=== PATIENT | female | born 1950 | race Caucasian/White ===

== ENCOUNTER → 2020-11-03 | Outpatient (CLI) | payer MEDICARE, OTHER ==
[~2020-11-03] MED LIST: ACYC800 PO; ASPI81CH PO; CELEBREX PO; CETI10 PO; DIPATR PO; ESOM20 PO; HYDACE10B PO; HYDACE5 PO; NITR100CA PO; OMEP20ER PO; OXYACE5T PO; PHENA200 PO; PROM25 PO; RXHYDMOR2 PO; RXPHEN200 PO; RXTRAM50 PO; TRAN2 PO; TRAVER2240 PO; VERA240ER PO
[2020-11-04 10:32] LABS: Candida species (DNA Probe) Negative (NEGATIVE); G. vaginalis (DNA Probe) Negative (NEGATIVE); T. vaginalis (DNA Probe) Negative (NEGATIVE)
== END ==
LOC: LAB SHORT 17:47 → LAB 17:47
PROVIDERS: Registered Nurse Community Health
DX: B37.3 Candidiasis of vulva and vagina (principal)
CPT/HCPCS: 87480; 87510; 87660

== ENCOUNTER → 2022-12-13 | Outpatient (CLI) | payer MEDICARE, OTHER ==
[2022-12-14 10:29] LABS: Candida species (DNA Probe) Negative (NEGATIVE); G. vaginalis (DNA Probe) Negative (NEGATIVE); T. vaginalis (DNA Probe) Negative (NEGATIVE)
== END | disposition home or self-care (01) ==
LOC: LAB 18:00 → LAB SHORT 18:00
PROVIDERS: Nurse Practitioner Family
DX: N89.8 Other specified noninflammatory disorders of vagina (principal)
CPT/HCPCS: 87480; 87510; 87660

== ENCOUNTER → 2024-01-23 | Outpatient (CLI) | payer MEDICARE, OTHER | LOC: LAB 19:44 → LAB SHORT 19:44 | DX: J02.9 Acute pharyngitis, unspecified (principal) | CPT/HCPCS: 87081 ==